=== PATIENT | male | born 1965 | race Caucasian/White ===

== ENCOUNTER 2017-02-13 19:46 | Emergency (ER) | payer OTHER ==
[2017-02-13 19:54] VITALS: BP 115/80; PULSE 86; TEMP 98.2; BMI 22.8
[2017-02-13] MEDS ORDERED: CEFTRIAXONE 1,000 MG in DEXTROSE 5%-WATER - 50 ML IVPB ONE (22:33)
[2017-02-13] MEDS ORDERED: CEFTRIAXONE 50 ML ONE (22:41)
[2017-02-13 23:04] LABS: BASOPHIL 0.9 % (0-2.0); EOSINOPHIL 5.6 % (0-4.5); MCH 30.5 pg (25.7-33.7); MCHC 33.4 g/dl (32.0-35.9); MEAN CELL VOLUME 91.3 fl (80-96); MEAN PLT VOLUME 8.4 fl (7.5-11.1); NEUTROPHILS 62.7 % (42.8-82.8); PLATELET COUNT 256 K/MM3 (134-434); RDW 13.8 % (11.9-15.9); WHITE BLOOD COUNT 10.7 K/mm3 (4.0-10.0)
[2017-02-13 23:38] LABS: ALBUMIN 3.7 g/dl (3.4-5.0); ALK PHOS 105 U/L (45-117); ANION GAP 10 (8-16); BILIRUBIN,TOTAL 0.5 mg/dL (0.2-1.0); CALCIUM 8.8 mg/dL (8.5-10.1); CO2 28 mmol/L (21-32); CREATININE 0.8 mg/dL (0.7-1.3); GLUCOSE,RANDOM 94 mg/dL (74-106); SGOT/AST 15 U/L (15-37); SGPT/ALT 13 U/L (12-78)
--- NOTE | 2017-02-14 00:58 | PDOC ---
History of Present Illness - General History Source: Primary Care Provider <More Mckeon - Last Filed: 02/14/17 01:05> - History of Present Illness Initial Comments: 02/14/17 01:01 The patient is a 51 year old male, with a significant past medical history of CVA x3 (last in 2009), hypertension, taking aspirin and xarelto, who presents to the emergency department with an abscess to the left side of his upper gums. He states the pain is radiating up to his right cheek to his eye. He reports some right eye blurred vision. The patient secondarily reports he was getting rehab for over a year in a [facility] after his last stroke in 2009. He states he needed to relearn to walk and talk s/p the stroke in 2009. He denies chest pain, shortness of breath, headache and dizziness. He denies fever, chills, nausea, vomit, diarrhea and constipation. He denies dysuria, frequency, urgency and hematuria. Allergies: heparin, contrast Past surgical history: stimulator implant in back Social history: former tobacco use PCP - Dr. Simeon ([facility]) <Liza Perez - Last Filed: 02/14/17 01:12> - General Chief Complaint: Pain Stated Complaint: INFECTION Time Seen by Provider: 02/13/17 21:26 Past History - Past Medical History Asthma: No Cardiac Disorders: No CVA: Yes (2009) COPD: No Diabetes: No GI Disorders: No Disorders: No HTN: No Kidney Stones: No Suicide Attempt (Hx): No Seizures: No - Surgical History Abdominal Surgery: No Appendectomy: Yes (@ 14YRS) Cardiac Surgery: No Cholecystectomy: No Lung Surgery: No Neurologic Surgery: No Orthopedic Surgery: No - Reproductive History Testicular Surgery: No - Immunization History Immunization Up to Date: Yes - Psycho/Social/Smoking Cessation Hx Anxiety: No Suicidal Ideation: No Smoking History: Never smoked Have you smoked in the past 12 months: Yes Number of Cigarettes Smoked Daily: 6 'Breaking Loose' booklet given: 11/16/16 Hx Alcohol Use: No Drug/Substance Use Hx: Yes Substance Use Type: Cocaine, Heroin, Opiates, Tranquilizers Hx Substance Use Treatment: Yes <More Mckeon - Last Filed: 02/14/17 01:05> <Liza Perez - Last Filed: 02/14/17 01:12> - Past Medical History Allergies/Adverse Reactions: Allergies Allergy/AdvReac Type Severity Reaction Status Date / Time heparin AdvReac Unknown unknown Verified 02/13/17 19:54 Home Medications: Ambulatory Orders Aspirin [ASA -] 81 mg PO DAILY #30 tab.chew 11/17/16 Atorvastatin Ca [Lipitor] 10 mg PO HS #30 tablet 11/17/16 Amoxicillin/Potassium Clav [Augmentin 875-125 Tablet] 1 each PO BID #20 tablet 02/14/17 Review of Systems - Review of Systems Able to Perform ROS?: Yes Comments:: 02/14/17 01:02 CONSTITUTIONAL: Absent: fever, chills, diaphoresis, generalized weakness, malaise, loss of appetite HEENT: (+) abscess and pain to right maxilla and cheek. Absent: rhinorrhea, nasal congestion, throat pain, throat swelling, difficulty swallowing, mouth swelling , ear pain, eye pain, visual Changes CARDIOVASCULAR: Absent: chest pain, syncope, palpitations, irregular heart rate, lightheadedness , peripheral edema RESPIRATORY: Absent: cough, shortness of breath, dyspnea with exertion, orthopnea, wheezing, stridor, hemoptysis GASTROINTESTINAL: Absent: abdominal pain, abdominal distension, nausea, vomiting, diarrhea, constipation, melena, hematochezia GENITOURINARY: Absent: dysuria, frequency, urgency, hesitancy, hematuria, flank pain, genital pain MUSCULOSKELETAL: Absent: myalgia, arthralgia, joint swelling SKIN: Absent: rash, itching, pallor HEMATOLOGIC/IMMUNOLOGIC: Absent: easy bleeding, easy bruising, lymphadenopathy, frequent infections ENDOCRINE: Absent: unexplained weight gain, unexplained weight loss, heat intolerance, cold intolerance NEUROLOGIC: Absent: headache, focal weakness or paresthesias, dizziness, unsteady gait, seizure, mental status changes, bladder or bowel incontinence PSYCHIATRIC: Absent: anxiety, depression, suicidal or homicidal ideation, hallucinations. <Liza Perez - Last Filed: 02/14/17 01:12> *Physical Exam - Vital Signs Last Vital Signs Temp Pulse Resp BP Pulse Ox 98.2 F 86 20 115/80 98 02/13/17 19:52 02/13/17 19:52 02/13/17 19:52 02/13/17 19:52 02/13/17 19:52 <MikeMore Clotilde - Last Filed: 02/14/17 01:05> - Vital Signs Last Vital Signs Temp Pulse Resp BP Pulse Ox 98.2 F 86 20 115/80 98 02/13/17 19:52 02/13/17 19:52 02/13/17 19:52 02/13/17 19:52 02/13/17 19:52 - Physical Exam Comments: 02/14/17 01:00 GENERAL: Well developed, well nourished. Awake and alert. No acute distress. HEENT: (+) on dental exam percussion sensitive right maxillary canine, also ttp in the buccal vestibule above the right canine. There is no significant swelling. Normocephalic, atraumatic. PERRLA, EOMI. No conjunctival pallor. Sclera are non- icteric. Moist mucous membranes. Oropharynx is clear. NECK: Supple. Full ROM. No JVD. Carotid pulses 2+ and symmetric, without bruits. No thyromegaly. No lymphadenopathy. CARDIOVASCULAR: Regular rate and rhythm. No murmurs, rubs, or gallops. Distal pulses are 2+ and symmetric. PULMONARY: No evidence of respiratory distress. Lungs clear to auscultation bilaterally. No wheezing, rales or rhonchi. ABDOMINAL: Soft. Non-tender. Non-distended. No rebound or guarding. No organomegaly. Normoactive bowel sounds. MUSCULOSKELETAL Normal range of motion at all joints. No bony deformities or tenderness. No CVA tenderness. EXTREMITIES: No cyanosis. No clubbing. No edema. No calf tenderness. SKIN: Warm and dry. Normal capillary refill. No rashes. No jaundice. NEUROLOGICAL: Alert, awake, appropriate. Cranial nerves 2-12 intact. Normoreflexic in the upper and lower extremities. Normal speech. Toes are down-going bilaterally. Gait is normal without ataxia. PSYCHIATRIC: Cooperative. Good eye contact. Appropriate mood and affect. <Liza Perez - Last Filed: 02/14/17 01:12> ED Treatment Course - LABORATORY CBC & Chemistry Diagram: 02/13/17 22:45 02/13/17 22:45 - ADDITIONAL ORDERS Additional order review: Laboratory Results 02/13/17 22:45 Sodium 142 Potassium 4.0 Chloride 104 Carbon Dioxide 28 Anion Gap 10 BUN 17 D Creatinine 0.8 Creat Clearance w eGFR > 60 Random Glucose 94 Calcium 8.8 Total Bilirubin 0.5 D AST 15 D ALT 13 Alkaline Phosphatase 105 Total Protein 7.0 Albumin 3.7 02/13/17 22:45 RBC 4.52 MCV 91.3 MCHC 33.4 RDW 13.8 MPV 8.4 Neutrophils % 62.7 Lymphocytes % 23.2 D Monocytes % 7.6 Eosinophils % 5.6 H D Basophils % 0.9 - RADIOLOGY Radiology Studies Ordered: Category Date Time Status FACIAL BONES CT W/O CONTRAST [CT] Stat CT Scan 02/14/17 00:01 Taken - Medications Given in the ED: ED Medications Discontinued Medications Generic Name Dose Route Start Last Admin Trade Name Freq PRN Reason Stop Dose Admin Ceftriaxone Sodium 1,000 mg/ 50 mls @ 100 mls/hr 02/13/17 22:33 02/13/17 23:04 Dextrose IVPB 02/13/17 23:02 100 mls/hr ONCE ONE Administration <More Mckeon - Last Filed: 02/14/17 01:05> - LABORATORY CBC & Chemistry Diagram: 02/13/17 22:45 02/13/17 22:45 - ADDITIONAL ORDERS Additional order review: Laboratory Results 02/13/17 22:45 Sodium 142 Potassium 4.0 Chloride 104 Carbon Dioxide 28 Anion Gap 10 BUN 17 D Creatinine 0.8 Creat Clearance w eGFR > 60 Random Glucose 94 Calcium 8.8 Total Bilirubin 0.5 D AST 15 D ALT 13 Alkaline Phosphatase 105 Total Protein 7.0 Albumin 3.7 02/13/17 22:45 RBC 4.52 MCV 91.3 MCHC 33.4 RDW 13.8 MPV 8.4 Neutrophils % 62.7 Lymphocytes % 23.2 D Monocytes % 7.6 Eosinophils % 5.6 H D Basophils % 0.9 - RADIOLOGY Radiograph Interpretation: 02/14/17 01:01 EXAM: FACIAL BONES CT W/O CONTRAST was read by Jr Horton MD at 00:48 EST HISTORY:Right maxillary pain and swelling FINDINGS: Moderate left maxillary and bilateral ethmoid sinus mucoperiosteal thickening and mild mucoperiosteal thickening within the right maxillary sinus and bilateral sphenoid sinuses. In addition, there are air-fluid levels within the maxillary sinuses bilaterally that is consistent with acute on chronic sinusitis. No significant soft tissue swelling or subcutaneous edema. No abnormal fluid collection to suggest an abscess. Patent airway Normal orbital globes Mild leftward deviation of the nasal septum - Medications Given in the ED: ED Medications Discontinued Medications Generic Name Dose Route Start Last Admin Trade Name Estephania PRN Reason Stop Dose Admin Ceftriaxone Sodium 1,000 mg/ 50 mls @ 100 mls/hr 02/13/17 22:33 02/13/17 23:04 Dextrose IVPB 02/13/17 23:02 100 mls/hr ONCE ONE Administration <Liza Perez - Last Filed: 02/14/17 01:12> *DC/Admit/Observation/Transfer <More Mckeon - Last Filed: 02/14/17 01:05> - Attestations Scribe Attestion: 02/14/17 01:12 Documentation prepared by Liza Perez, acting as medical transcription for More Mckeon MD <Liza Perez - Last Filed: 02/14/17 01:12> Diagnosis at time of Disposition: Facial pain Sinusitis Qualifiers: Sinusitis location: maxillary Chronicity: acute Recurrence: not specified as recurrent Qualified Code(s): J01.00 - Acute maxillary sinusitis, unspecified - Discharge Dispostion Disposition: HOME Condition at time of disposition: Stable - Prescriptions Prescriptions: Amoxicillin/Potassium Clav [Augmentin 875-125 Tablet] 1 each PO BID #20 tablet - Referrals Referrals: Anson Simeon MD [Primary Care Provider] - - Patient Instructions Printed Discharge Instructions: DI for Sinusitis Additional Instructions: YOU MUST TAKE PELT INSPECTOR YOUR PRESCRIPTION FOR YOUR ANTIBIOTICS AT YOUR PHARMACY IT IS VERY IMPORTANT TO TAKE ALL YOUR ANTIBIOTICS PLEASE FOLLOW UP WITH YOUR REGULAR DOCTOR RETURN FOR ANY WORSENING SYMPTOMS,FEVER - Post Discharge Activity
== END 2017-02-14 01:43 | disposition home or self-care (01) ==
LOC: JER 19:46 → JERFT 19:46 → JER 02-14 01:43
DX: J01.00 Acute maxillary sinusitis, unspecified (principal); I10 Essential (primary) hypertension; Z86.73 Personal history of transient ischemic attack (TIA), and cerebral infarction without residual deficits
CPT/HCPCS: 36415; 70486-TC; 80053; 85025; 96365; 99281-25